=== PATIENT | female | born 1995 | race Caucasian/White ===

== ENCOUNTER 2017-02-27 04:36 | Emergency (ER) | payer BC ==
[2017-02-27] MEDS ORDERED: HYDROcodone/ACETAMIN 5-325 MG* 1 TAB PO ONE (04:42)
[2017-02-27] MEDS ORDERED: Ibuprofen TAB* 400 MG PO ONE (04:43)
[2017-02-27 04:46] VITALS: BP 120/60
--- NOTE | 2017-02-27 05:27 | ED ---
Pati Raya Michael, scribed for Mikayla Levine MD on 02/27/17 at 0508 . Lower Extremity - HPI Summary HPI Summary: 21 y/o female was BIBA to the ED presenting with left foot pain and swelling. The pt reports to running yesterday at 1600 when she "rolled" her ankle. During the evening the pain and swelling worsened. She was unable to bear weight after the accident, and the pt assesses the pain currently at 7 out of 10. At the initial onset of pain, it was a 10 out of 10. The pt arrived to the ED with ice on her foot which did not alleviate the pain. - History of Current Complaint Chief Complaint: EDExtremityLower Stated Complaint: LT ANKLE INJURY Time Seen by Provider: 02/27/17 04:42 Hx Obtained From: Patient, Medical Records Mechanism Of Injury: Twisted Onset of Pain: Immediate Onset/Duration: Days Severity Initially: Severe Severity Currently: Moderate Pain Intensity: 7 Pain Scale Used: 0-10 Numeric Timing: Constant Location: Is Discrete @ - left foot Associated Signs And Symptoms: Positive: Swelling, Other - left foot pain - Allergies/Home Medications Allergies/Adverse Reactions: Allergies Allergy/AdvReac Type Severity Reaction Status Date / Time No Known Allergies Allergy Verified 02/27/17 05:00 PMH/Surg Hx/FS Hx/Imm Hx Previously Healthy: Yes - pt denies PMHx Infectious Disease History: Denies: Traveled Outside the [place] in Last 30 Days - Family History Known Family History: Positive: None - pt denies significant FHx - Social History Occupation: Student Lives: With Family Alcohol Use: Rare Substance Use Type: Reports: None Smoking Status (MU): Never Smoked Tobacco Review of Systems Negative: Fever Positive: Other - left foot pain and swelling All Other Systems Reviewed And Are Negative: Yes Physical Exam Triage Information Reviewed: Yes Vital Signs On Initial Exam: Initial Vitals Temp Pulse Resp BP Pulse Ox 99.8 F 72 14 120/60 98 02/27/17 04:41 02/27/17 04:41 02/27/17 04:41 02/27/17 04:41 02/27/17 04:41 Vital Signs Reviewed: Yes Appearance: Positive: Well-Appearing, Pain Distress Skin: Positive: Warm, Skin Color Reflects Adequate Perfusion, Dry Eyes: Positive: EOMI, TONI ENT: Positive: Pharynx normal, TMs normal Neck: Positive: Supple, Nontender Respiratory/Lung Sounds: Positive: Clear to Auscultation, Breath Sounds Present. Negative: Rales, Rhonchi, Wheezes Cardiovascular: Positive: RRR, Other - no gallops. Negative: Murmur, Rub Abdomen Description: Positive: Nontender, Soft, Other: - no rebound. Negative: Distended, Guarding Bowel Sounds: Positive: Present Musculoskeletal: Positive: Strength/ROM Intact, Other - tender to palpation lateral and medial small left toe. Neurological: Positive: Sensory/Motor Intact, Alert, Oriented to Person Place, Time, CN Intact II-III Psychiatric: Positive: Affect/Mood Appropriate Diagnostics - Vital Signs Vital Signs Temp Pulse Resp BP Pulse Ox 02/27/17 04:41 99.8 F 72 14 120/60 98 - Laboratory Lab Statement: Any lab studies that have been ordered have been reviewed, and results considered in the medical decision making process. - Radiology ankle XR Xray Interpretation: No Acute Changes Radiology Interpretation Completed By: ED Physician Lower Extremity Course/Dx - Course Course Of Treatment: 21 yo female with ankle sprain and mild medial malleolar pain putting pt in cam walker because of the medial discomfort, xray negative no widening of mortisse - Diagnoses Provider Diagnoses: Ankle sprain Discharge - Discharge Plan Condition: Stable Disposition: HOME Prescriptions: Hydrocodone-Acetaminophen [[place] 5-325 mg] 1 tab PO Q6HR #14 tab MDD 4 The documentation as recorded by the Pati la Michael accurately reflects the service I personally performed and the decisions made by me, Mikayla Levine MD.
--- NOTE | 2017-02-27 06:02 | ED ---
Progress - Progress Note Progress Note: Pt additionally has abrasions (road rash) to two spots on right shoulder with full range of motion, these wounds were dressed and abx ointment was placed Course/Dx - Course Course Of Treatment: 21 yo female with ankle sprain and mild medial malleolar pain putting pt in cam walker because of the medial discomfort, xray negative no widening of mortisse - Diagnoses Provider Diagnoses: Ankle sprain
--- NOTE | 2017-02-27 08:31 | RAD ---
Indication: Lateral malleolus region pain. Unable to bear weight. Inversion injury. Comparison: None. Technique: AP, mortise, and lateral views LEFT ankle. Report: Negative for fracture or malalignment. No suggestion of talocrural joint effusion. Moderate soft tissue swelling over the lateral malleolus. IMPRESSION: Moderate lateral soft tissue swelling without additional finding.
== END 2017-02-27 06:10 | disposition home or self-care (01) ==
LOC: ED 04:36 → EEVIPCON 04:36 → ED 06:10
DX: S93.402A Sprain of unspecified ligament of left ankle, initial encounter (principal); X50.9XXA Other and unspecified overexertion or strenuous movements or postures, initial encounter; Y93.02 Activity, running; Y92.9 Unspecified place or not applicable
CPT/HCPCS: 99282; A9270-GY